=== PATIENT | male | born 1950 | race Caucasian/White ===

== ENCOUNTER → 2023-01-24 13:40 | Outpatient (CLI) | payer MEDICARE, SELFPAY ==
--- NOTE | 2023-01-24 14:08 | DIET.OUTPTC ---
Dietary Outpatient Consultation Note Consultation Date: 01/24/2023 72[address] M attending RD visit with , Ina, for help with nutrition advice to suppport T2DM and Chronic Fatigue Syndrome. Pt diagnosed with T2DM 11y ago. Highest A1c was 7.2, current A1c 6.9. Pts PCP would like to keep him 7.0 or less. Pt taking 2,000mg metformin ER in the morning- some diarrhea. Pt attends visit using a rolling walker. Explains CFS begins with voice getting quieter then legs giving out. Has been worked up by neurology. Pt desires nutrition education to support chronic fatigue, muscles, energy levels, and to ensure his knowledge on carb consistent diet is on track. Moved to [place] recently from [place], living in daylight basement apartment with functional but limited kitchen. Ht: 5'8 Wt: 167# UBW:150-155# Food Recall: B: 9 grain bread c pb and honey; coffee c creamer Sn: oatmeal c raisins L: salad with non-starchy veggies, poppyseed dressing and 4 triscuits D: pulled pork on onion bun with veggies Arianne: coffee and 32oz water Physical Activity: 30-45min stretching 3d/w, walking 2mi 5d/w RD Impression: Pt consuming adequate carbohydrates (~225/d) but likely low in protein (~50g). Pt with adequate physical activity especially considering functional status. Nutrition Diagnosis: altered nutrition related laboratory values (A1c) r/t endocrine dysfunction and inadequate intake protein aeb A1c 6.9 despite 2,000mg/d metformin, pt consuming 75% EER for protein. Interventions: 1. Introduced pt and spouse to [employer] for recipe and meal plan ideas. 2. Educated on healthy plate/plate balance and carb counting. Pt to choose 45-60g CHO with meals and 15-30g with snacks. Aiming for consistent intake and always pairing with protein and fiber for blood sugar stability. 3. Provided pt [employer] nutrition handout on foods to support mitochondrial function in all food groups. Goals: 1. Pick and prepare 1 new recipe from [employer] each week. 2. Discuss option of splitting dose metformin to AC/HS with PCP. 3. Pair protein with carbohydrates at all meals. 4. Halve amount of raisins in oatmeal and add chopped walnuts. 5. Pt has diet diary templates he will restart using for a few weeks to track intake. F/u PRN Electronically Signed by: Peggy Sanchez 01/24/23 14:08 Clinical Dietitian [address] [address]
== END ==
PROVIDERS: Absent Provider Internal Medicine; Family Provider Internal Medicine; PCP Internal Medicine; Referring Provider Internal Medicine; Visit Provider Internal Medicine
DX: E11.9 Type 2 diabetes mellitus without complications (principal); G93.32 Myalgic encephalomyelitis/chronic fatigue syndrome; Z79.84 Long term (current) use of oral hypoglycemic drugs; Z71.3 Dietary counseling and surveillance
CPT/HCPCS: 97802

== ENCOUNTER 2023-09-25 07:47 | Day surgery (SDC) | payer OTHER, SELFPAY ==
[2023-09-25] MEDS: LACTATED RINGERS 1,000 ML 42 ML IV ×2 (08:25→09:37)
[2023-09-25] MEDS: FLEETS ENEMA 1 EACH PR (08:27)
[2023-09-25 08:33] VITALS: BP 187/85; PULSE 102; RESP 102; TEMP 36.3; O2SAT 16; BMI 26.9
--- NOTE | 2023-09-25 08:35 | PM.HP.1 ---
History of Present Illness History of Present Illness Date Patient Seen: 09/25/23 Time Patient Seen: 08:35 Chief complaint: Colonoscopy Narrative: History of colon polyps. Last done 2-3 years ago at [facility]. He thinks he remembers being told he had a 1 year recall. I have not seen the procedure note. Meds Home Medications and Allergies Home Medications Medication Instructions Recorded Confirmed Type latanoprost 0.005 % eye drops 1 drp EYE-BOTH ONCE PM 09/25/23 09/25/23 History lisinopril 20 mg tablet 20 mg PO DAILY 09/25/23 09/25/23 History pravastatin 10 mg tablet 10 mg PO DAILY 09/25/23 09/25/23 History Allergies Allergy/AdvReac Type Severity Reaction Status Date / Time No Known Drug Allergies Allergy Verified 09/25/23 08:21 Review of Systems Review of Systems ROS: Yes All systems reviewed with the patient and are negative except as otherwise documented Exam Const General: cooperative HENMT Head: normal to inspection Eyes General: appearance normal, both eyes and all related structures Neck Neck: normal visual inspection Chest Chest: normal inspection of the chest Resp Effort & Inspection: normal respiratory effort Cardio Rate: regular rate GI Inspection: normal to inspection Skin General: no rashes or lesions noted Neuro General: patient alert and patient awake Extrem General: normal to inspection and no pedal edema Psych Appearance: grossly normal Assessment & Plan Assessment & Plan narrative: 73-year-old male with personal history of colon polyps. Colonoscopy is pursued today.
--- NOTE | 2023-09-25 08:37 | PM.PREOP ---
Pre-operative Note Interval Note History & Physical reviewed/Exam performed by Physician: Yes Changes to H&P: No ASA Class (for procedural sedation): II
[2023-09-25 09:42] VITALS: BP 134/73; PULSE 84; RESP 18; TEMP 36.4; O2SAT 99
--- NOTE | 2023-09-25 09:42 | PM.OP.COLON ---
Operative Date/Time/Diagnoses Date of procedure: 09/25/23 Time of procedure: 09:42 Pre-op diagnosis: Personal history of colon polyps Post-op diagnosis: same Procedure & Clinicians Study performed: Colonoscopy Same procedure as scheduled: Yes Indications: Personal history of colon polyps Surgeon: Wil Talbot Procedure Notes SCOAP/Timeout: Done Procedure in detail: After the risks and benefits were explained, written and verbal informed consent was obtained. The patient was brought into the procedure room and placed into the left lateral decubitus position. Please see anesthesia note for sedation details. Digital rectal examination was accomplished. The scope was introduced into the patient and advanced under direct visualization to the cecum as identified by the appendiceal orifice and ileocecal valve. The scope was slowly withdrawn to carefully examine the mucosa for any defects or lesions. Comprehensive imaging was accomplished throughout the rectum including the dentate line. The colon was decompressed, the scope was then removed from the patient who tolerated the procedure well. Pediatric colonoscope bowel prep suboptimal Scope withdrawal time: 16 minutes Sedation minutes: 27 Specimen(s): none sent Complications: none Impression: There was a moderate amount of retained stool in prep debris. Some of this was quite fibrous. Small polyps could have been overlooked in several locations. Within the limitations of the bowel prep, I did not appreciate any significant polyps or mass lesions. Endoscopic diagnosis 1. Suboptimal bowel prep 2. Otherwise visually unremarkable exam Post-procedure Plan for aftercare: Repeat colonoscopy in 1-2 years with an extended prep. Disposition: PACU
[2023-09-25 09:47] VITALS: BP 132/66; PULSE 85; RESP 14; O2SAT 100
[2023-09-25 09:52] VITALS: BP 141/70; PULSE 84; RESP 13; O2SAT 99
[2023-09-25 09:57] VITALS: BP 147/73; PULSE 80; RESP 12; TEMP 36.6; O2SAT 100
[2023-09-25 09:59] VITALS: BP 148/78; PULSE 80; RESP 14; TEMP 36.6; O2SAT 100
== END 2023-09-25 10:15 | disposition home or self-care (01) ==
PROVIDERS: Family Provider Internal Medicine; PCP Internal Medicine; Referring Provider Internal Medicine Gastroenterology; Visit Provider Internal Medicine Gastroenterology
PROC: 0DJD8ZZ Inspection of Lower Intestinal Tract, Via Natural or Artificial Opening Endoscopic (ICD-10-PCS; CPT 45378; principal; 2023-09-25 09:00)
DX: Z12.11 Encounter for screening for malignant neoplasm of colon (principal); Z86.010 Personal history of colon polyps
CPT/HCPCS: G0105; J2704

== ENCOUNTER → 2024-07-09 08:58 | Outpatient (CLI) | payer MEDICARE, SELFPAY ==
[2024-07-09 10:05] LABS: COVID-19 CEPHEID 4-PLEX PCR Negative (Negative); Influenza A - CEPHEID Flu A NEGATIVE (NEGATIVE); Influenza B - CEPHEID Flu B NEGATIVE (NEGATIVE); Respiratory Syncytial Virus Negative (Negative)
== END ==
PROVIDERS: Family Provider Internal Medicine; PCP Internal Medicine; Visit Provider Nurse Practitioner Family
DX: J02.9 Acute pharyngitis, unspecified (principal); R05.1 Acute cough
CPT/HCPCS: 0241U; 87070

== ENCOUNTER → 2024-07-09 09:29 | Outpatient (CLI) | payer MEDICARE, SELFPAY ==
--- NOTE | 2024-07-09 09:30 | DI.RAD.S_ITS ---
PROCEDURE: XR CHEST 2V INDICATIONS: Cough TECHNIQUE: 2 views of the chest were acquired. COMPARISON: None. FINDINGS: Heart, mediastinum and pulmonary vascular: Heart is normal in size and configuration. Mediastinum is unremarkable. Pulmonary vascular is normal. Lungs: Clear Pleural spaces: Normal-no effusions or pneumothorax. Bones and soft tissues: Normal IMPRESSION: Normal chest. Dictated by: Javy Mohamud M.D. on 07/10/2024 at 16:01 Approved by: Javy Mohamud M.D. on 07/10/2024 at 16:01
== END ==
PROVIDERS: Family Provider Internal Medicine; PCP Internal Medicine; Referring Provider Nurse Practitioner Family; Visit Provider Nurse Practitioner Family
DX: J02.9 Acute pharyngitis, unspecified (principal); R05.1 Acute cough
CPT/HCPCS: 0241U; 71046; 87070

== ENCOUNTER → 2024-08-12 10:16 | Outpatient (CLI) | payer MEDICARE, SELFPAY ==
[2024-08-14 12:47] LABS: Fecal Immunochemical Test Negative (Negative)
== END ==
PROVIDERS: Family Provider Internal Medicine; PCP Family Medicine; Referring Provider Family Medicine; Visit Provider Family Medicine
DX: Z12.11 Encounter for screening for malignant neoplasm of colon (principal)
CPT/HCPCS: 82274

== ENCOUNTER 2024-10-21 23:19 | Emergency (ER) | payer MEDICARE, SELFPAY ==
[2024-10-21 23:25] VITALS: BP 222/105; PULSE 78; RESP 14; TEMP 36.6; O2SAT 100; BMI 24.3
[2024-10-22] VITALS (9 sets, daily range): BP systolic 143–204; BP diastolic 72–90; PULSE 72–83; RESP 14–25; O2SAT 99–100
[2024-10-22] MEDS: SODIUM CHLORIDE 0.9% 1,000 ML 1000 ML IV (00:16)
[2024-10-22] MEDS: ONDANSETRON 4 MG/2 ML INJ IV (00:16)
--- NOTE | 2024-10-22 02:11 | EKG_ITS ---
[id number] [address] Test Date: 2024-10-22 Pat Name: Bhanu Henry Department: [facility] Room: Gender: Male Emergency Communications Dispatcher: JAG : [id number] Requested By: Order Number: [id number] Reading MD: Javy Blum MD Measurements Intervals [place] Rate: 76 P: 55 HI: 164 QRS: 11 QRSD: 116 T: 28 QT: 390 QTc: 438 Interpretive Statements Normal sinus rhythm Right bundle branch block Cannot rule out Anterior infarct , age undetermined NO PRIOR TRACING Electronically Signed On 10-22-2024 8:29:45 PST by Javy Blum MD
[2024-10-22 02:27] LABS: Add Manual Diff / Slide Review NO; Basophils Absolute Auto 100 /uL (0-100); Basophils Percent Auto 0.4 % (0-2); Eosinophils Absolute Auto 0 /uL (0-450); Eosinophils Percent Auto 0.2 % (2-4); Hematocrit 36.4 % (41-53); Hemoglobin 12.2 g/dL (13.5-17.5); Lymphocytes Absolute Auto 1000 /uL (1100-4500); Lymphocytes Percent Auto 7.1 % (25-40); Mean Corpuscular HGB Conc 33.4 % (30-36); Mean Corpuscular Hemoglobin 28.5 PG (26-34); Mean Corpuscular Volume 85.5 fL (80-100); Monocytes Absolute Auto 600 /uL (0-900); Monocytes Percent Auto 4.2 % (3-14); Neutrophils Absolute Auto 13000 /uL (1500-7000); Neutrophils Percent Auto 88.1 % (50-75); Platelet Count 338 X10^3/uL (150-400); Red Blood Cell Count 4.26 X10^6/uL (4.5-5.9); Red Cell Distribution Width 13.3 % (11.6-14.8); White Blood Cell Count 14.7 X10^3/uL (4.5-11.0)
[2024-10-22 02:31] LABS: Alanine Aminotransferase 20 IU/L (<50); Albumin 4.5 g/dL (3.5-5.0); Albumin Globulin Ratio 1.7 (1.0-2.8); Alkaline Phosphatase 70 U/L (38-126); Aspartate Aminotransferase 29 IU/L (17-59); BUN Creatinine Ratio 23.5 (6-22); Bilirubin Total 0.7 mg/dL (0.2-1.3); Blood Urea Nitrogen 24 mg/dL (9-20); Calcium 8.8 mg/dL (8.4-10.2); Carbon Dioxide 22 mmol/L (22-32); Chloride 101 mmol/L (98-107); Creatine Kinase 65 U/L (55-170); Estimated Glomerular Filt Rate > 60 mL/min (>60); Globulin 2.6 g/dL (1.7-4.1); Glucose 160 mg/dL (80-110); Lipase 61 U/L (23-300); Sodium 133 mmol/L (137-145); Total Protein 7.1 g/dL (6.3-8.2)
[2024-10-22 02:35] LABS: HEMOLYSIS 101 (0-50)
[2024-10-22 02:36] LABS: Potassium 4.8 mmol/L (3.4-5.1)
[2024-10-22 02:43] LABS: Troponin I < 0.012 ng/mL (0.01-0.034)
[2024-10-22 04:19] LABS: Bacteria Urine None Seen; Culture Indicated Urine Cult Not Indicated; RBC Urine None Seen (0-5/HPF); Squamous Epithelial Cell Urine None Seen (0-5/HPF); Urine Volume 10mL (spun); WBC Urine None Seen (0-5/HPF)
--- NOTE | 2024-10-22 04:40 | ED.NAVMDI ---
HPI - Nausea/Vomiting/Diarrhea General Chief complaint: Nausea/Vomiting/Diarrhea Stated complaint: N/V x6hrs Time Seen by Provider: 10/22/24 03:56 Source: patient and EMS Mode of arrival: EMS History of Present Illness HPI Narrative: Patient is a 74-year-old male history of chronic fatigue and vertigo presenting today with a vertigo. He reports he felt a coming on he has had it before however this time he was unable to stop vomiting. He was afraid he was going to get dehydrated. He was extremely weak. He had no focal deficits. He is diffusely weak from his chronic fatigue syndrome but did not notice anything new. He has no chest pain or palpitations no abdominal pain. He did not pass out. Related Data Home Medications Medication Instructions Recorded Confirmed latanoprost 0.005 % eye drops 1 drp EYE-BOTH ONCE PM 09/25/23 07/31/24 blood sugar diagnostic (Contour #10 ea 07/09/24 07/31/24 Next Test Strips) lancets (Microlet Lancet) #100 ea 07/09/24 07/31/24 Previous Rx's Medication Instructions Recorded lisinopril 20 mg tablet 20 mg PO DAILY #100 tabs 07/31/24 metformin 500 mg tablet,extended 1,000 mg (2 x 500 mg) PO BID #400 07/31/24 release 24 hr tabs pravastatin 10 mg tablet 10 mg PO DAILY #100 tabs 07/31/24 Allergies Allergy/AdvReac Type Severity Reaction Status Date / Time procaine [From Novocain] Allergy Severe Anaphylaxis Verified 07/31/24 08:03 Patient History Medical History Chronic fatigue, unspecified Vertigo Type 2 diabetes mellitus without complication, with no history of insulin use Hyperlipidemia, unspecified Benign essential hypertension 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) Family History Father Diabetes mellitus Mother Dementia Brother Diabetes mellitus Social History household members: spouse Smoking Status: Never smoker alcohol intake: current Smoking Status: Never smoker alcohol intake frequency: a few times a week Exam Initial Vital Signs Initial Vital Signs: Vital Signs Temperature 97.9 F 10/21/24 23:25 Pulse Rate 78 10/21/24 23:25 Respiratory Rate 14 10/21/24 23:25 Blood Pressure 222/105 H 10/21/24 23:25 Pulse Oximetry 100 10/21/24 23:25 Oxygen Delivery Method Room Air 10/21/24 23:25 GENERAL: Alert well-appearing 74-year-old male and in no acute distress. HEENT: Head atraumatic,EOMI, pupils reactive, face symmetric, moist mucous membranes CARDIOVASCULAR: Regular rate and rhythm without murmurs, rubs or gallops. RESPIRATORY: Breath sounds equal bilaterally, no wheezes rales or rhonchi. ABDOMEN: Soft, nontender. Normoactive bowel sounds all 4 quadrants. No guarding or rebound. EXTREMITIES: Normal range of motion, no clubbing or edema. Neurovascularly intact NEUROLOGICAL: Alert and oriented x4.Normal gait and speech. Cranial nerves II through XII grossly intact. 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 Course Orders Ordered: ED Orders 10/22/24 01:31 EKG-12 Lead Stat 10/22/24 02:00 Complete Blood Count AUTO DIFF Stat Comprehensive Metabolic Panel Stat Lipase Stat Troponin & CK Cardiac Panel Stat 10/22/24 03:15 Urine Microscopic Stat Discontinued Medications Sodium Chloride (Normal Saline 0.9%) 1,000 mls @ 1,000 mls/hr IV BOLUS ONE Stop: 10/22/24 01:05 Last Infusion: 10/22/24 01:26 Dose: Infused Documented By: Admin: 10/22/24 00:16 Dose: 1,000 mls/hr Documented By: BRYNN Meclizine HCl (Meclizine Hcl 12.5 Mg Tablet) 50 mg PO NOW ONE Stop: 10/22/24 00:05 Last Admin: 10/22/24 05:04 Dose: 50 mg Documented By: MAGALYS Ondansetron HCl (Ondansetron 4 Mg/2 Ml Inj) 4 mg IV NOW ONE Stop: 10/22/24 00:05 Last Admin: 10/22/24 00:16 Dose: 4 mg Documented By: BRYNN Vital Signs Vital signs: Vital Signs - 8 hr 10/21/24 23:25 10/22/24 01:55 10/22/24 01:56 Temperature 97.9 F Pulse Rate 78 77 77 Respiratory Rate 14 15 16 Blood Pressure 222/105 H Pulse Oximetry 100 100 Oxygen Delivery Method Room Air 10/22/24 02:00 10/22/24 02:00 10/22/24 02:30 Temperature Pulse Rate 76 Respiratory Rate 14 Blood Pressure 187/87 H 167/80 H Pulse Oximetry 100 Oxygen Delivery Method Room Air 10/22/24 02:30 10/22/24 03:01 10/22/24 03:03 Temperature Pulse Rate 74 83 Respiratory Rate 16 25 H Blood Pressure 204/90 H Pulse Oximetry 100 Oxygen Delivery Method 10/22/24 03:03 10/22/24 03:30 10/22/24 03:30 Temperature Pulse Rate 76 73 Respiratory Rate 24 14 Blood Pressure 172/79 H Pulse Oximetry 100 99 Oxygen Delivery Method Room Air 10/22/24 04:00 10/22/24 04:00 10/22/24 04:30 Temperature Pulse Rate 73 Respiratory Rate 15 Blood Pressure 161/77 H 143/72 H Pulse Oximetry 99 Oxygen Delivery Method 10/22/24 04:30 Temperature Pulse Rate 72 Respiratory Rate 19 Blood Pressure Pulse Oximetry 99 Oxygen Delivery Method Room Air MDM - Nausea/Vomiting/Diarrhea Lab Data 10/22/24 02:00 10/22/24 02:00 Labs: Lab Results 10/22/24 10/22/24 Range/Units 02:00 03:15 WBC 14.7 H (4.5-11.0) X10^3/uL RBC 4.26 L (4.5-5.9) X10^6/uL Hgb 12.2 L (13.5-17.5) g/dL Hct 36.4 L (41-53) % MCV 85.5 (80-100) fL MCH 28.5 (26-34) PG MCHC 33.4 (30-36) % RDW 13.3 (11.6-14.8) % Plt Count 338 (150-400) X10^3/uL Neut % (Auto) 88.1 H (50-75) % Lymph % (Auto) 7.1 L (25-40) % [place] % (Auto) 4.2 (3-14) % Eos % (Auto) 0.2 L (2-4) % Baso % (Auto) 0.4 (0-2) % Neut # (Auto) 98963 H (4445-8855) /uL Lymph # (Auto) 1000 L (8600-0990) /uL [place] # (Auto) 600 (0-900) /uL Eos # (Auto) 0 (0-450) /uL Baso # (Auto) 100 (0-100) /uL Sodium 133 L (137-145) mmol/L Potassium 4.8 (3.4-5.1) mmol/L Chloride 101 (98-107) mmol/L Carbon Dioxide 22 (22-32) mmol/L BUN 24 H (9-20) mg/dL Creatinine 1.02 (0.66-1.25) mg/dL Estimated GFR > 60 (>60) mL/min BUN/Creatinine Ratio 23.5 H (6-22) Glucose 160 H (80-110) mg/dL Calcium 8.8 (8.4-10.2) mg/dL Total Bilirubin 0.7 (0.2-1.3) mg/dL AST 29 (17-59) IU/L ALT 20 (<50) IU/L Alkaline Phosphatase 70 (38-126) U/L Total Creatine Kinase 65 (55-170) U/L Troponin I < 0.012 (0.01-0.034) ng/mL Total Protein 7.1 (6.3-8.2) g/dL Albumin 4.5 (3.5-5.0) g/dL Globulin 2.6 (1.7-4.1) g/dL Albumin/Globulin Ratio 1.7 (1.0-2.8) Lipase 61 (23-300) U/L Urine RBC None seen (0-5/HPF) Urine WBC None seen (0-5/HPF) Ur Squamous Epith Cells None seen (0-5/HPF) Urine Bacteria None seen (None) Ur Culture Indicated? Cult not indicated Vol Urine Centrifuged 10ml (spun) Urine Dip Bedside Urine Glucose 250 mg/dl Bedside Urine Bilirubin - Negative Bedside Urine Ketone +/- 5 Urine Specific [place] 1.020 Bedside Urine Protein +/- 15 Bedside Urine Urobilinogen - Negative Bedside Urine Nitrite - Negative Bedside Urine Leukocytes - Negative Esterase ECG Data Attestation: I personally reviewed and interpreted this ECG as follows: Interpretation: Normal sinus rhythm rate 76 DC interval 164 QRS [address] changes MDM Narrative Medical decision making narrative: Patient is 74-year-old male history of vertigo presenting today with vertigo. He was vomiting a number of times and could not stop. He received IV fluids and Zofran here. That seemed to help him pretty quickly he no longer wanted her required the meclizine. Blood work has been raised viewed no significant abnormality. He has no leukocytosis electrolyte abnormality or MARIE troponin is negative Chest x-ray no acute cardiopulmonary process EKGs does not show any arrhythmia At this time patient is overall feeling much better he has been in the ED for a number of hours feels like he was ready and able to go home. Discharge Plan Departure Patient Disposition: Home Clinical Impression: Vertigo Instructions: Vertigo Activity Restrictions/Additional Instructions: *You have been diagnosed with vertigo *What to do: At this time I recommend you go home and sleep hope that you start to feel better soon *Continue to take medications as directed *Follow up with your primary care provider in 2-3 days or call [phone] *Return to ER if you should have increasing dizziness has pain persistent vomiting or any new, worsening or concerning symptoms Prescriptions: No Action (DME) Contour Next Test Strips Strip See Rx Instructions .ROUTE .MEDSUPPLY Qty: 10 Rx Instructions: As directed (DME) lancets [Microlet Lancet] Misc See Rx Instructions .ROUTE .MEDSUPPLY Qty: 100 Patient Comments: [NO ORIGINAL SIG] Rx Instructions: As directed lisinopril 20 mg tablet 20 mg PO DAILY Qty: 100 3RF metformin 500 mg tablet extended release 24 hr 1,000 mg PO BID Qty: 400 3RF pravastatin 10 mg tablet 10 mg PO DAILY Qty: 100 3RF latanoprost 0.005 % drops 1 drp EYE-BOTH ONCE PM Referrals: Camila Rivas DO [Primary Care Provider] - Stand Alone Forms: Patient Portal/API/Survey
[2024-10-22] MEDS: MECLIZINE HCL 12.5 MG TABLET 50 MG PO (05:04)
== END 2024-10-22 05:20 | disposition home or self-care (01) ==
PROVIDERS: Emergency Provider Emergency Medicine; Family Provider Internal Medicine; PCP Family Medicine
DX: R42 Dizziness and giddiness (principal); R11.2 Nausea with vomiting, unspecified; G93.32 Myalgic encephalomyelitis/chronic fatigue syndrome; I10 Essential (primary) hypertension
CPT/HCPCS: 36415; 80053; 81003; 81015; 82550; 83690; 84484; 85025; 93005; 93010; 96361; 96374; 99284; J2405

== ENCOUNTER → 2025-02-12 09:23 | Outpatient (CLI) | payer MEDICARE, SELFPAY ==
[2025-02-12 10:16] LABS: BUN Creatinine Ratio 21.4 (6-22); Blood Urea Nitrogen 25 mg/dL (9-20); Calcium 9.4 mg/dL (8.4-10.2); Carbon Dioxide 21 mmol/L (22-32); Chloride 104 mmol/L (98-107); Cholesterol 156 mg/dL (140-199); Estimated Glomerular Filt Rate > 60 mL/min (>60); Glucose 151 mg/dL (70-99); HDL Cholesterol 37 mg/dL (40-60); HEMOLYSIS < 15 (0-50); LDL Cholesterol Calculated 72 mg/dL (<100); Sodium 134 mmol/L (137-145); Triglycerides 236 mg/dL (35-150)
[2025-02-12 13:35] LABS: HIV 1 & 2 Ab/Ag 4th Gen Combo NEGATIVE (NEGATIVE); Hep C Virus Ab w/Reflex Quant NEGATIVE s/c (NEGATIVE)
== END ==
PROVIDERS: PCP Family Medicine; Referring Provider Family Medicine; Visit Provider Family Medicine
DX: E11.9 Type 2 diabetes mellitus without complications (principal); E78.5 Hyperlipidemia, unspecified; I10 Essential (primary) hypertension; Z11.59 Encounter for screening for other viral diseases; D64.9 Anemia, unspecified; Z11.4 Encounter for screening for human immunodeficiency virus [HIV]
CPT/HCPCS: 36415; 80048; 80061; 83036; 86803; 87389

== ENCOUNTER 2025-07-17 11:18 | Emergency (ER) | payer MEDICARE, SELFPAY ==
[2025-07-17] VITALS (8 sets, daily range): BP systolic 183–213; BP diastolic 81–96; PULSE 62–87; RESP 13–16; TEMP 36.9; O2SAT 99–100; BMI 24.3
--- NOTE | 2025-07-17 11:27 | DI.CT.S_ITS ---
PROCEDURE: CT ANGIO HEAD AND NECK
--- NOTE | 2025-07-17 11:27 | DI.CT.S_ITS ---
PROCEDURE: CT HEAD/BRAIN WO CON
--- NOTE | 2025-07-17 11:27 | DI.RAD.S_ITS ---
PROCEDURE: XR CHEST 1V
--- NOTE | 2025-07-17 11:39 | EKG_ITS ---
Merged With [facility]
[2025-07-17 11:42] LABS: Add Manual Diff / Slide Review NO; Hematocrit 37.0 % (41-53); Hemoglobin 12.4 g/dL (13.5-17.5); Lymphocytes Absolute Auto 2000 /uL (1100-4500); Mean Corpuscular HGB Conc 33.5 % (30-36); Mean Corpuscular Hemoglobin 28.1 PG (26-34); Mean Corpuscular Volume 84.0 fL (80-100); Platelet Count 299 X10^3/uL (150-400)
[2025-07-17 11:56] LABS: Alanine Aminotransferase 18 IU/L (<50); Albumin 4.5 g/dL (3.5-5.0); Albumin Globulin Ratio 1.7 (1.0-2.8); Alkaline Phosphatase 91 U/L (38-126); Blood Urea Nitrogen 31 mg/dL (9-20); Calcium 9.2 mg/dL (8.4-10.2); Carbon Dioxide 20 mmol/L (22-32); Chloride 101 mmol/L (98-107); Estimated Glomerular Filt Rate 58 mL/min (>60); Globulin 2.7 g/dL (1.7-4.1); Glucose 254 mg/dL (70-99); HEMOLYSIS < 15 (0-50); Lipase 123 U/L (23-300); Magnesium 1.5 mg/dL (1.6-2.3); Potassium 5.1 mmol/L (3.4-5.1); Sodium 133 mmol/L (137-145); Total Protein 7.2 g/dL (6.3-8.2)
[2025-07-17 12:08] LABS: NT-proBNP (BNP-Adult 18+) 102 pg/mL (<450); Troponin I < 0.012 ng/mL (0.01-0.034)
--- NOTE | 2025-07-17 12:35 | ED_ITS ---
HPI - General Adult
--- NOTE | 2025-07-17 12:35 | ED.GENADULT ---
HPI - General Adult General Chief complaint: Hypertension Stated complaint: Sent from [facility], High blood pressure this morning Time Seen by Provider: 07/17/25 11:27 History of Present Illness HPI narrative: 74-year-old gentleman history of hypertension dyslipidemia diabetes presents with elevated blood pressure home after rechecking it several times and feeling fatigued for which he did check his blood sugar at home was 122. He denies headache, dizziness, blurry vision, chest pain, shortness breath, leg pain, leg swelling, nausea, vomiting, abdominal pain, diaphoresis. Other than what is stated 14 point review of system is negative. Related Data Home Medications ?Medication ?Instructions ?Recorded ?Confirmed latanoprost 0.005 % eye drops 1 drp EYE-BOTH ONCE PM 09/25/23 05/05/25 Previous Rx's ?Medication ?Instructions ?Recorded meclizine 25 mg tablet 25 mg PO TID PRN vertigo #30 tabs 11/04/24 ondansetron 4 mg disintegrating 4 mg PO Q6-8H PRN nausea and 11/04/24 tablet vomiting #30 tabs triamcinolone acetonide 0.1 % 1 applic topical BID PRN rash #30 02/12/25 topical cream grams blood sugar diagnostic (Blood #100 ea 07/04/25 Glucose Test strips) lancets 28 gauge #300 ea 07/04/25 lisinopril 20 mg tablet 20 mg PO DAILY #100 tabs 07/04/25 metformin 500 mg tablet,extended 1,000 mg (2 x 500 mg) PO BID #400 07/04/25 release 24 hr tabs pravastatin 10 mg tablet 10 mg PO DAILY #100 tabs 07/04/25 Allergies Allergy/AdvReac Type Severity Reaction Status Date / Time procaine (From Novocain) Allergy Severe Anaphylaxis Verified 05/05/25 13:37 Review of Systems Review of Systems ROS Unobtainable: All systems reviewed & are unremarkable except as noted in HPI and below Patient History Medical History (Updated 07/17/25 @ 15:23 by Javy Thomas, ) Type 2 diabetes mellitus with ophthalmic complication, 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 Well-developed patient, in mild distress. HEAD: Atraumatic. Normocephalic. EYES: Pupils equal round and reactive. Extraocular motions intact. No scleral icterus. No injection or drainage. ENT: Nose without bleeding, purulent drainage. Throat without erythema, tonsillar hypertrophy or exudate. Airway patent. NECK: Trachea midline. Non tender CARDIOVASCULAR: Regular rate and rhythm without murmurs, gallops, or rubs. RESPIRATORY: Clear to auscultation. Breath sounds equal bilaterally. No wheezes, rales, or rhonchi. GASTROINTESTINAL: Abdomen soft, non-tender, nondistended. EXTREMITIES: No edema or joint tenderness. BACK: Nontender without deformity or crepitance. No flank tenderness. NEURO: AOx3. SKIN: No rash or erythema of visible areas Initial Vital Signs Initial Vital Signs: Vital Signs Temperature 98.5 F 07/17/25 11:24 Pulse Rate 87 07/17/25 11:24 Respiratory Rate 16 07/17/25 11:24 Blood Pressure 213/96 H 07/17/25 11:24 Pulse Oximetry 100 07/17/25 11:24 Oxygen Delivery Method Room Air 07/17/25 11:24 Course Orders Ordered: ED Orders 07/17/25 11:27 CT angio head and neck Stat CT head/brain wo con Stat XR chest 1V Stat EKG-12 Lead Stat 07/17/25 11:34 Complete Blood Count AUTO DIFF Stat Comprehensive Metabolic Panel Stat Lipase Stat Magnesium Stat NT-proBNP (BNP-Adult 18+) Stat Troponin I Stat 07/17/25 13:30 Troponin I Stat Magnesium Sulfate (Magnesium Sulfate) 2 gm in 50 mls @ 25 mls/hr IV NOW ONE Stop: 07/17/25 16:34 Last Admin: 07/17/25 14:41 Dose: 25 mls/hr Documented By: RASHEEDA Co-signed By: VERNA Vital Signs Vital signs: Vital Signs - 8 hr 07/17/25 11:24 07/17/25 12:31 07/17/25 12:37 Temperature 98.5 F Pulse Rate 87 71 Respiratory Rate 16 13 Blood Pressure 213/96 H 200/87 H Pulse Oximetry 100 100 Oxygen Delivery Method Room Air 07/17/25 13:00 07/17/25 13:00 07/17/25 13:34 Temperature Pulse Rate 67 Respiratory Rate 13 Blood Pressure 183/81 H Pulse Oximetry 100 99 Oxygen Delivery Method 07/17/25 13:35 07/17/25 13:35 07/17/25 14:00 Temperature Pulse Rate 66 62 Respiratory Rate Blood Pressure 197/88 H Pulse Oximetry 100 100 Oxygen Delivery Method 07/17/25 14:01 07/17/25 14:01 Temperature Pulse Rate 64 Respiratory Rate Blood Pressure 194/82 H Pulse Oximetry 100 Oxygen Delivery Method Medical Decision Making Lab Data 07/17/25 11:34 07/17/25 11:34 Labs: Lab Results 07/17/25 07/17/25 Range/Units 11:34 13:30 WBC 6.5 (4.5-11.0) X10^3/uL RBC 4.40 L (4.5-5.9) X10^6/uL Hgb 12.4 L (13.5-17.5) g/dL Hct 37.0 L (41-53) % MCV 84.0 (80-100) fL MCH 28.1 (26-34) PG MCHC 33.5 (30-36) % RDW 12.9 (11.6-14.8) % Plt Count 299 (150-400) X10^3/uL Neut % (Auto) 58.8 (50-75) % Lymph % (Auto) 30.4 (25-40) % [place] % (Auto) 6.8 (3-14) % Eos % (Auto) 3.0 (2-4) % Baso % (Auto) 1.0 (0-2) % Neut # (Auto) 3800 (7515-4182) /uL Lymph # (Auto) 2000 (0883-0548) /uL [place] # (Auto) 400 (0-900) /uL Eos # (Auto) 200 (0-450) /uL Baso # (Auto) 100 (0-100) /uL Sodium 133 L (137-145) mmol/L Potassium 5.1 (3.4-5.1) mmol/L Chloride 101 (98-107) mmol/L Carbon Dioxide 20 L (22-32) mmol/L BUN 31 H (9-20) mg/dL Creatinine 1.28 H (0.66-1.25) mg/dL Estimated GFR 58 L (>60) mL/min BUN/Creatinine Ratio 24.2 H (6-22) Glucose 254 H (70-99) mg/dL Calcium 9.2 (8.4-10.2) mg/dL Magnesium 1.5 L (1.6-2.3) mg/dL Total Bilirubin 0.3 (0.2-1.3) mg/dL AST 20 (17-59) IU/L ALT 18 (<50) IU/L Alkaline Phosphatase 91 (38-126) U/L Troponin I < 0.012 < 0.012 (0.01-0.034) ng/mL NT-Pro-B Natriuret Pep 102 (<450) pg/mL Total Protein 7.2 (6.3-8.2) g/dL Albumin 4.5 (3.5-5.0) g/dL Globulin 2.7 (1.7-4.1) g/dL Albumin/Globulin Ratio 1.7 (1.0-2.8) Lipase 123 (23-300) U/L Imaging Data CT scan - head: Radiologist's Impression: [place] [address] CT Scan Report Signed Patient: Bhanu Henry MR#: [id number] : 1950 Acct:[id number] Age/Sex: 74 / M Date of Service: 07/17/25 Loc: ED Accession Number: [id number] Procedure: CT head/brain wo con Ordering Provider: Javy Thomas D.O. PROCEDURE: CT HEAD/BRAIN WO CON INDICATIONS: elevated blood pressure TECHNIQUE: Noncontrast 4.5 mm thick angled axial sections acquired from the foramen magnum to the vertex, with coronal and sagittal reformats. For radiation dose reduction, the following was used: automated exposure control, adjustment of mA and/or kV according to patient size. COMPARISON: None. FINDINGS: Image quality: Diagnostic. CSF spaces: Basal cisterns are patent. No extra-axial fluid collections. Ventricles are normal in size and shape. Brain: No midline shift. No intracranial mass effect or hemorrhage. Weeks-white matter interface is normal. Diffuse cerebral volume loss. Patchy areas of white matter hypoattenuation often associated with small vessel ischemic disease. Intracranial atherosclerotic calcification. Skull and face: Calvarium and visualized facial bones are intact, without suspicious lesions. Sinuses: Opacification right maxillary sinus partially imaged. IMPRESSION: No acute intracranial pathology. Dictated by: Jose M Rose M.D. on 07/17/2025 at 12:12 Approved by: Jose M Rose M.D. on 07/17/2025 at 12:16 CTA - brain/neck: Radiologist's Impression: [address] [address] [address] Scan Report Signed Patient: Bhanu Henry MR#: [id number] : 1950 Acct:[id number] Age/Sex: 74 / M Date of Service: 07/17/25 Loc: ED Accession Number: [id number] Procedure: CT angio head and neck Ordering Provider: Javy Thomas D.O. PROCEDURE: CT ANGIO HEAD AND NECK INDICATIONS: elevated blood pressure lightheaded TECHNIQUE: After the administration of intravenous contrast, 1 mm thick sections acquired from the aortic arch through the [place] of [place]. 3-dimensional hbkgbti-gljippmzl-tfrujkegsh (MIP) and/or volume rendering reformats were acquired of the central intracranial vasculature and neck separately. For radiation dose reduction, the following was used: automated exposure control, adjustment of mA and/or kV according to patient size. COMPARISON: None. FINDINGS: Image quality: Diagnostic. Cerebral CT Angiogram: Internal carotid arteries: No acute findings. Intracranial ICA are patent with no significant stenosis. Trace cavernous calcifications bilaterally. No occlusion. No aneurysm. Anterior cerebral arteries: Unremarkable. No significant stenosis. No occlusion. No aneurysm. Middle cerebral arteries: Unremarkable. No significant stenosis. No occlusion. No aneurysm. Posterior cerebral arteries: Unremarkable. No significant stenosis. No occlusion. No aneurysm. Basilar artery: Unremarkable. No significant stenosis. No occlusion. No aneurysm. Vertebral arteries: Unremarkable as visualized. Dural venous sinuses: Unremarkable given phase of enhancement. Other: Arterial phase appearance of the brain parenchyma is unremarkable. Neck CT Angiogram: Internal carotid arteries: Unremarkable. No significant stenosis. No dissection or occlusion. Common carotid arteries: Unremarkable. No significant stenosis. No dissection or occlusion. External carotid arteries: Unremarkable. No occlusion. Vertebral arteries: Unremarkable. No significant stenosis. No dissection or occlusion. Aortic Arch and Mediastinum: Partially visualized aortic arch unremarkable without evidence of aneurysm. Origins of the great vessels unremarkable. Other: Severe multilevel degenerative changes of the cervical spine. IMPRESSION: No significant intracranial arterial abnormality is seen. No significant abnormality is seen within the arteries of the neck. Any quantitative measurements of stenosis were performed using NASCET criteria. Dictated by: oJse M Rose M.D. on 07/17/2025 at 12:16 Approved by: Jose M Rose M.D. on 07/17/2025 at 12:19 Chest x-ray: Radiologist's Impression: [address] [address] XRay Report Signed Patient: Bhanu Henry MR#: [id number] : 1950 Acct:[id number] Age/Sex: 74 / M Date of Service: 07/17/25 Loc: ED Accession Number: [id number] Procedure: XR chest 1V Ordering Provider: Javy Thomas D.O. PROCEDURE: XR CHEST 1V INDICATIONS: elevated blood pressure TECHNIQUE: One view of the chest was acquired. [facility]09[facility], 9:41. FINDINGS: Surgical changes and devices: None. Lungs and pleura: Lungs are clear. No pleural effusions or pneumothorax. Mediastinum: Mediastinal contours appear normal. Heart size is normal. Bones and chest wall: No suspicious bony lesions. Overlying soft tissues appear unremarkable. IMPRESSION: No acute cardiopulmonary abnormality is seen. ECG Data Interpretation: NSR RBBB HR 75 AK 160 QRS [address]-t wave change MDM Narrative Medical decision making narrative: All lab work, vital signs, nurse triage note, medication list, previous ER visits, and all imaging studies reviewed. Chest x-ray showed no acute process. CT showed no acute intracranial process. CT head and neck no significant intracranial arterial abnormality. No significant abnormality seen within the neck. WBC 6.5 hemoglobin 12.4 platelet of 299 sodium 133 potassium 5.1 chloride 101 CO2 20 BUN 31 creatinine 1.28 glucose 254 magnesium 1.5 troponin less than 0.012 x2 BNP 102. Differential diagnosis me NSTEMI unstable angina CVA aneurysm hemorrhage. Discharge Plan Departure Patient Disposition: Home Clinical Impression: Malignant hypertension, Hypomagnesemia Instructions: DI for High Blood Pressure Activity Restrictions/Additional Instructions: Return with new or worsening symptoms. Follow up with PCP next week for blood pressure recheck. Increase lisinopril from 10 to 20mg daily. Prescriptions: No Action metformin 500 mg tablet extended release 24 hr 1,000 mg PO BID Qty: 400 3RF pravastatin 10 mg tablet 10 mg PO DAILY Qty: 100 3RF lisinopril 20 mg tablet 20 mg PO DAILY Qty: 100 3RF (DME) Blood Glucose Test Strip See Rx Instructions .ROUTE .MEDSUPPLY Qty: 100 3RF Rx Instructions: to test blood glucose up to three times daily A1C 7.1 (DME) lancets 28 gauge misc See Rx Instructions .ROUTE .MEDSUPPLY Qty: 300 3RF Rx Instructions: to test blood glucose up to three times daily A1C 7.1 triamcinolone acetonide 0.1 % cream 1 applic topical BID PRN (Reason: rash) Qty: 30 11RF Rx Instructions: apply to affected areas for a 2 weeks if needed then stop for 1-2 weeks. can repeat as needed. ondansetron 4 mg tablet,disintegrating 4 mg PO Q6-8H PRN (Reason: nausea and vomiting) Qty: 30 11RF meclizine 25 mg tablet 25 mg PO TID PRN (Reason: vertigo) Qty: 30 11RF latanoprost 0.005 % drops 1 drp EYE-BOTH ONCE PM Referrals: Camila Rivas DO [Primary Care Provider, Family Practice] Stand Alone Forms: Patient Portal/API
--- NOTE | 2025-07-17 12:36 | PC.NURSE ---
Pt denying any dizziness when getting onto ED stretcher. States he has been feeling weak and fatigue recently
[2025-07-17] MEDS: MAGNESIUM SULFATE 2 GM/50 ML PIGGYBACK IV (14:41)
[2025-07-17 15:02] LABS: Troponin I < 0.012 ng/mL (0.01-0.034)
== END 2025-07-17 16:36 | disposition home or self-care (01) ==
PROVIDERS: Emergency Provider Family Medicine; PCP Family Medicine
DX: I10 Essential (primary) hypertension (principal); E83.42 Hypomagnesemia
CPT/HCPCS: 36415; 70450; 70496; 70498; 71045; 80053; 83690; 83735; 83880; 84484; 85025; 93005; 99284; J3475; Q9967

== ENCOUNTER → 2025-07-23 14:10 | Outpatient (CLI) | payer MEDICARE, SELFPAY ==
[2025-07-23 16:35] LABS: HEMOLYSIS < 15 (0-50); Iron 69 ug/dL (49-181)
[2025-07-23 16:46] LABS: Percent Iron Saturation 22 % (20-50); Total Iron Binding Capacity 315 ug/dL (261-462); Transferrin 269 mg/dL (206-381)
[2025-07-23 17:14] LABS: Ferritin 53 ng/mL (18-464)
[2025-07-23 17:26] LABS: Vitamin B12 255 pg/mL (239-931)
== END ==
PROVIDERS: PCP Family Medicine; Referring Provider Family Medicine; Visit Provider Physician Assistant
DX: Z12.5 Encounter for screening for malignant neoplasm of prostate (principal); E11.36 Type 2 diabetes mellitus with diabetic cataract; I10 Essential (primary) hypertension
CPT/HCPCS: 36415; 82607; 82728; 83540; 83550; G0103

== ENCOUNTER → 2025-07-25 15:58 | Outpatient (CLI) | payer MEDICARE, SELFPAY | PROVIDERS: Physician Assistant; PCP Family Medicine; Referring Provider Family Medicine; Visit Provider Family Medicine | DX: E11.36 Type 2 diabetes mellitus with diabetic cataract (principal); I10 Essential (primary) hypertension | CPT/HCPCS: 82274 ==